=== PATIENT | female | born 1955 | race Caucasian/White ===

== ENCOUNTER 2022-04-04 06:47 | Emergency (ER) | payer MEDICARE, MEDICAID ==
[~2022-04-04] VITALS: Ht 157.5 cm; Wt 90.9 kg
[2022-04-04 06:51] VITALS: BP 175/94
[2022-04-04] MEDS ORDERED: ketorolac trometh. 30mg/ml inj. IM ONE (07:20)
== END 2022-04-04 09:47 | disposition home or self-care (01) ==
LOC: ER 06:48
DX: M25.552 Pain in left hip (principal); G89.29 Other chronic pain; M54.9 Dorsalgia, unspecified; F15.10 Other stimulant abuse, uncomplicated; X50.9XXA Other and unspecified overexertion or strenuous movements or postures, initial encounter; Y93.89 Activity, other specified; Y92.89 Other specified places as the place of occurrence of the external cause; Y99.8 Other external cause status
CPT/HCPCS: 73502; 73700; 96372; 99284; J1885

== ENCOUNTER 2022-05-12 22:34 | Emergency (ER) | payer MEDICARE, MEDICAID ==
[~2022-05-12] VITALS: Ht 157.5 cm; Wt 93.0 kg
[2022-05-12 22:58] VITALS: BP 150/82
[2022-05-13] MEDS ORDERED: cyclobenzaprine 10mg tablet PO ONE (02:00)
[2022-05-13] MEDS ORDERED: triamcinolone acetonide 40mg/ml inj IM ONE (02:05)
--- NOTE | 2022-05-13 02:10 | NUR ---
im given po med given
[2022-05-13] MEDS ORDERED: TRAM50TA2 PO (03:09)
== END 2022-05-13 03:38 | disposition home or self-care (01) ==
LOC: ER 22:34
DX: M54.59 Other low back pain (principal); G89.29 Other chronic pain; M43.10 Spondylolisthesis, site unspecified; F15.10 Other stimulant abuse, uncomplicated; Z79.899 Other long term (current) drug therapy
CPT/HCPCS: 72128; 72131; 96372; 99284; J3301

== ENCOUNTER 2024-09-07 19:01 | Emergency (ER) | payer BC, MEDICAID ==
[~2024-09-07] VITALS: Ht 154.9 cm; Wt 88.1 kg
[2024-09-07] MEDS ORDERED: AMOX-117 PO (21:04)
[2024-09-07] MEDS ORDERED: ALBU8HFA INH (21:04)
[2024-09-07] MEDS ORDERED: PRED10TA23 PO (21:04)
[2024-09-07] MEDS: ipratropium/albuterol 3ml nebule NEB ONE (21:18)
[2024-09-07 21:21] VITALS: PULSE 96; RESP 18; O2SAT 94
[2024-09-07 21:24] VITALS: PULSE 95; RESP 18; O2SAT 97
[2024-09-07 21:47] VITALS: BP 130/64; PULSE 95; RESP 15; TEMP 98.7; O2SAT 96
== END 2024-09-07 21:48 | disposition home or self-care (01) ==
LOC: ER 19:02
DX: J20.8 Acute bronchitis due to other specified organisms (principal); B96.89 Other specified bacterial agents as the cause of diseases classified elsewhere; H66.90 Otitis media, unspecified, unspecified ear; F15.90 Other stimulant use, unspecified, uncomplicated; Z20.822 Contact with and (suspected) exposure to COVID-19
CPT/HCPCS: 36415; 71046; 87502; 87503; 87811; 94640; 94760; 99283; 99284